=== PATIENT | male | born 1990 | race Caucasian/White ===

== ENCOUNTER 2018-11-03 18:04 | Emergency (ER) | payer BC ==
[~2018-11-03] VITALS: Ht 172.7 cm; Wt 59.0 kg
[2018-11-03 18:13] VITALS: BP 150/109
[2018-11-03 18:43] LABS: RAPID INFLUENZA A Negative (Negative); RAPID INFLUENZA B Negative (Negative)
[2018-11-03] MEDS ORDERED: IBUPROFEN 800 MG TABLET PO STA (18:45)
[2018-11-03] MEDS ORDERED: DEXAMETHASONE 1 MG TABLET PO STA (18:45)
[2018-11-03] MEDS ORDERED: IBUPROFEN 200 MG TABLET ONE (18:52)
[2018-11-03] MEDS ORDERED: DEXAMETHASONE 4 MG TABLET ONE (18:52)
== END 2018-11-03 19:26 | disposition home or self-care (01) ==
LOC: ED 19:00
DX: B34.9 Viral infection, unspecified (principal); M79.10 Myalgia, unspecified site
CPT/HCPCS: 71046; 87400; 99284